=== PATIENT | female | born 1995 | race Caucasian/White ===

== ENCOUNTER 2017-11-15 00:15 | Emergency (ER) | payer OTHER ==
[2017-11-15] MEDS ORDERED: ONDANSETRON 4 MG/2 ML VIAL IVP ONE ×2 (00:21→02:54)
[2017-11-15] MEDS ORDERED: NS 1,000 ML IV ONE (00:21)
--- NOTE | 2017-11-15 00:33 | EDPHY ---
H & P Source: Patient, EMS Exam Limitations: Intoxication Time Seen by Provider: 11/15/17 00:21 HPI/ROS: HPI: This is a 22-year-old female who presents with Chief Complaint: Intoxication Location:body Quality: Intoxication Duration: Today Signs and Symptoms: No suicidal ideation, no homicidal ideation, no paranoia, no chest pain, no shortness of breath, no abdominal pain Timing: Acute Severity: Severe Context: Patient was brought in by EMS after a bystander called them as patient was vomiting in the bathroom on [address]. Patient is clearly intoxicated , mumbles, no bystanders at bedside. + nausea. Patient unable to tell me what she has drank or ingested this evening. She is unsure of where she is. Modifying Factors: None Comment: ROS: Limited due to intoxication MEDICAL/SURGICAL/SOCIAL HISTORY: Medical history: Unknown Surgical history: None to Social history: Unknown CONSTITUTIONAL: intoxicated, somnolent, wakes to verbal stimuli, no obvious distress HEENT: Atraumatic and normocephalic, PERRL, EOMI. Tympanic membranes clear. Oropharynx clear, no exudate and moist pink mucosa. Airway patent. No lymphadenopathy. No meningismus. Cardiovascular: Normal S1/S2, regular rate, regular rhythm, without murmur rub or gallop. PULMONARY/CHEST: Symmetrical and nontender. Clear to auscultation bilaterally. Good air movement. No accessory muscle usage. ABDOMEN: Soft, nondistended, nontender, no rebound, no guarding, no peritoneal signs, no masses or organomegaly. No CVAT. EXTREMITIES: 2/2 pulses, strength 5/5, no deformities, no clubbing, no cyanosis or edema. NEUROLOGICAL: no focal neuro deficits. Somnolent. Will not follows 1 step commands. SKIN: Warm and dry, no erythema. no rash. Good capillary refill. (Johnna,Terra) Constitutional: Initial Vital Signs Temperature (C) 36.8 C 11/15/17 00:26 Heart Rate 94 11/15/17 00:26 Respiratory Rate 16 11/15/17 00:26 Blood Pressure 127/96 H 11/15/17 00:26 O2 Sat (%) 92 11/15/17 00:26 O2 Delivery Mode Room Air Allergies/Adverse Reactions: Unable to Assess Allergy (Unverified 08/13/15 00:24) Home Medications: Medication Instructions Recorded Unobtainable 08/13/15 Medical Decision Making ED Course/Re-evaluation: Patient placed on detainer upon arrival. Labs, UDS, IV fluids, IV medications ordered. Placed on monitor. 0038: Reassessed patient; sleeping soundly in hallway bed. 0124: VENICE 406 0200: End of Shift. Signed over to Dr. Metzger pending re-evaluation once more sober. This patient was seen under the supervision of my secondary supervising physician. I evaluated care for this patient independently. Discussed this patient with Dr. Metzger who did not see the patient. Patient's presentation, labs /imaging, treatment and plan of care were discussed with secondary supervising physician. (Olga Oropeza) Differential Diagnosis: Altered mental status including but not limited to hypoglycemia, infectious process, electrolyte abnormality, head injury and intoxicants. (Olga Oropeza) Other Provider: 0200 care assumed by me from ISACC Oropeza pending sobriety and ability to ambulate. 0630 Patient is now awake and appropriate. Ambulating unassisted to the bathroom. No current complaints. Medically cleared for discharge. She has sober friends here. (Mario Metzger) - Data Points Laboratory Results: Laboratory Results 11/15/17 00:21 11/15/17 00:30 11/15/17 11/15/17 11/15/17 00:30 00:30 00:21 WBC 9.34 10^3/uL 10^3/uL (3.80-9.50) RBC 4.71 10^6/uL 10^6/uL (4.18-5.33) Hgb 12.5 g/dL L g/dL (12.6-16.3) Hct 38.1 % % (38.0-47.0) MCV 80.9 fL L fL (81.5-99.8) MCH 26.5 pg L pg (27.9-34.1) MCHC 32.8 g/dL g/dL (32.4-36.7) RDW 17.6 % H % (11.5-15.2) Plt Count 244 10^3/uL 10^3/uL (150-400) MPV 9.6 fL fL (8.7-11.7) Neut % (Auto) 79.1 % H % (39.3-74.2) Lymph % (Auto) 16.2 % % (15.0-45.0) [place] % (Auto) 4.0 % L % (4.5-13.0) Eos % (Auto) 0.0 % L % (0.6-7.6) Baso % (Auto) 0.6 % % (0.3-1.7) Nucleat RBC Rel Count 0.0 % % (0.0-0.2) Absolute Neuts (auto) 7.39 10^3/uL H 10^3/uL (1.70-6.50) Absolute Lymphs (auto) 1.51 10^3/uL 10^3/uL (1.00-3.00) Absolute Monos (auto) 0.37 10^3/uL 10^3/uL (0.30-0.80) Absolute Eos (auto) 0.00 10^3/uL L 10^3/uL (0.03-0.40) Absolute Basos (auto) 0.06 10^3/uL 10^3/uL (0.02-0.10) Absolute Nucleated RBC 0.00 10^3/uL 10^3/uL (0-0.01) Immature Gran % 0.1 % % (0.0-1.1) Immature Gran # 0.01 10^3/uL 10^3/uL (0.00-0.10) Sodium 150 mEq/L H mEq/L (135-145) Potassium 4.0 mEq/L mEq/L (3.5-5.2) Chloride 109 mEq/L mEq/L (97-110) Carbon Dioxide 20 mEq/l L mEq/l (22-31) Anion Gap 21 mEq/L H mEq/L (8-16) BUN 7 mg/dL mg/dL (7-23) Creatinine 0.7 mg/dL mg/dL (0.6-1.0) Estimated GFR > 60 Glucose 104 mg/dL H mg/dL (70-100) Calcium 10.3 mg/dL mg/dL (8.5-10.4) Beta HCG, Qual NEGATIVE Ethyl Alcohol 406 mg/dL H* mg/dL (0-10) Medications Given: Discontinued Medications Sodium Chloride (Ns) 1,000 mls @ 0 mls/hr IV EDNOW ONE; Wide Open PRN Reason: Protocol Stop: 11/15/17 00:22 Last Admin: 11/15/17 00:40 Dose: 1,000 mls Ondansetron HCl (Zofran) 4 mg IVP EDNOW ONE Stop: 11/15/17 00:22 Last Admin: 11/15/17 00:40 Dose: 4 mg Ondansetron HCl (Zofran) 4 mg IVP EDNOW ONE Stop: 11/15/17 02:55 Last Admin: 11/15/17 02:57 Dose: 4 mg Departure - Departure Disposition: Home, Routine, Self-Care Clinical Impression: Alcohol intoxication Qualifiers: Complication of substance-induced condition: uncomplicated Qualified Code(s): F10.920 - Alcohol use, unspecified with intoxication, uncomplicated Instructions: Alcohol Intoxication (ED) Referrals: Patient,NotPresent [Primary Care Provider] - As per Instructions
[2017-11-15 00:41] VITALS: RESP 16
[2017-11-15 01:18] LABS: PLATELET COUNT 244 10^3/uL (150-400)
[2017-11-15] MEDS ORDERED: ONDANSETRON 4 MG/2 ML VIAL ONE (02:44)
[2017-11-15 06:54] VITALS: BP 119/67; PULSE 78; TEMP 98.2; O2SAT 95
== END 2017-11-15 06:58 | disposition home or self-care (01) ==
LOC: EDUNIT#
DX: F10.920 Alcohol use, unspecified with intoxication, uncomplicated (principal); E86.9 Volume depletion, unspecified
CPT/HCPCS: 96374; G0480; J2405

== ENCOUNTER 2018-04-30 20:57 | Emergency (ER) | payer OTHER ==
--- NOTE | 2018-04-30 21:09 | EDPHY ---
General Time Seen by Provider: 04/30/18 21:06 Narrative: CHIEF COMPLAINT: fell, "fucked up my back" HISTORY OF PRESENT ILLNESS: Patient presents with complaints of "I fell and fucked up my back." She states that she was hiking when she slipped and fell, landing on a rock on her left lower back. She denies head strike or loss of consciousness. Her only complaint is a laceration to the left lower back and muscular pain there. She has no midline back tenderness. She has no numbness, tingling or weakness. No incontinence of bowel or bladder. No difficulty ambulating. It is moderately painful when you touch the area. Pain improved at rest. No radiating pain. No other associated complaints or modifying factors. No history of bleeding disorders. 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 Nonsmoker. [employer] student. REVIEW OF SYSTEMS: Ten systems reviewed and are negative unless otherwise noted in the HPI EXAMINATION General Appearance: Alert, no distress. Well-developed well-nourished. Head: normocephalic, atraumatic. No Fernandez sign. No raccoon eyes. No outward signs of trauma. Neck: Supple nontender. No crepitus, step-off or deformity. Painless range of motion all planes. Cardiovascular: Symmetric DP and PT pulses 2+. Neurological: GCS 15. 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 Left lower back lacerations. The superior laceration is 3.5 cm, complex with involvement of the fascial layer of the quadratus lumborum but no muscular laceration. No foreign body. The inferior laceration is very superficial without foreign body or bleeding. Extremities: Nontender, no pedal edema. Symmetric range of motion MDM: 9:10 p.m. Mechanical fall with 2 left lower back lacerations that will require irrigation further examination as there is dried blood around it. Patient is currently change into a gown no head strike or loss of conscious. She is fully ambulatory with no acute distress. 9:20 p.m. Patient has change into a gown and I have been able to examine her. She has 2 areas of laceration to left lower back that will require suture repair. He was superficial and do not compromise the fascial or muscular planes. There is no foreign body or pulsatile bleeding. She is neuro intact distally. Tetanus is up-to-date this year. 10:05 p.m. After irrigation of the wound, the superior laceration is much deeper than initially appreciated. This does go down to the fascial layer of the quadratus lumborum but does not penetrate any of the muscular layers. This required a 3 layer closure which was done with excellent approximation. We discussed wound care. We discussed Keflex prophylaxis and muscle relaxation if needed. We discuss ibuprofen 600 mg [id number] every 6-8 hours. We discussed wound re-evaluation in 48-72 hours here or the primary care physician. We discussed suture removal in 7-10 days. She is comfortable this plan and discharged home stable condition. PROCEDURE: Laceration repair, 1. Consent: Verbal Location: Left lower back, superior Length of repair: 3.5 cm, oval Complexity: Complex Layer involvement: 3 layer Anesthesia: Local per 1% lidocaine with epinephrine. 6 mL Irrigation: Extensive Debridement: None Procedure description: Following good anesthesia, the wound was copiously irrigated. Wound bed was explored with a sterile glove, and there is no foreign body noted. There is compromise of the fascial layer but no muscular injury. Wound borders were approximated well with good hemostasis. Tolerated well without complication. Suture/Staple material: Fascial layer: 4-0 Vicryl, 5 [id number] simple sutures. Subcutaneous layer 4-0 Vicryl, 8 running sutures. cutaneous layer: 4-0 Prolene, 9 simple interrupted sutures Wound care: Routine as discussed Suture/Staple removal: 7-10 Days PROCEDURE: Laceration repair, 2. Consent: Verbal Location: Left lower back, inferior Length of repair: 2.5 cm oval Complexity: Complex Layer involvement: Single Anesthesia: Local. 1% lidocaine with epinephrine. 4 mL Irrigation: Extensive Debridement: None Procedure description: Following good anesthesia, the wound was copiously irrigated. Wound bed was explored with a sterile glove, and there is no foreign body noted. No injury to the fascia or muscular layers of the low back. Wound borders were approximated well with good hemostasis. Tolerated well without complication. Suture/Staple material: 4-0 Prolene, 5 simple interrupted Wound care: Routine as discussed Suture/Staple removal: 7-10 Days SUPERVISION: This patient was independently evaluated without direct involvement of or examination by the attending physician. ED Precautions: Worsening pain. Erythema, edema, cyanosis, pallor, paresthesia or anesthesia. - History Smoking Status: Never smoked - Objective Vital Signs: Initial Vital Signs Temperature (C) 98.1 F 04/30/18 20:58 Heart Rate 99 04/30/18 20:58 Respiratory Rate 16 04/30/18 20:58 Blood Pressure 129/87 H 04/30/18 20:58 O2 Sat (%) 96 04/30/18 20:58 O2 Delivery Mode Room Air Allergies/Adverse Reactions: amoxicillin Allergy (Verified 04/30/18 21:04) Home Medications: Medication Instructions Recorded Cephalexin [Keflex (*)] 500 mg PO QID #24 cap 04/30/18 Cyclobenzaprine [Cyclobenzaprine 5 mg PO TID PRN #9 tab 04/30/18 HCl] Departure - Departure Disposition: Home, Routine, Self-Care Clinical Impression: Laceration of left side of back Qualifiers: Encounter type: initial encounter Qualified Code(s): S21.212A - Laceration without foreign body of left back wall of thorax without penetration into thoracic cavity, initial encounter Laceration of trunk, complicated Qualifiers: Encounter type: initial encounter Qualified Code(s): S21.91XA - Laceration without foreign body of unspecified part of thorax, initial encounter Condition: Good Instructions: Cephalexin (By mouth), Cyclobenzaprine (By mouth), Care For Your Stitches (ED), Laceration (ED) Additional Instructions: 1. Thin layer of bacitracin once daily for the next 2 days 2. Keep the wound covered while showering for the next 3 days 3. Daily wound care as discussed 4. Return here for suture removal in 7 days 5. Return here for signs of infection as discussed including warmth, redness, fever, drainage from the site 6. return here for increasing pain surrounding the laceration 7. Do not submerge the wound in any water, hot tub, swimming pool until sutures removed Referrals: Rory Moore MD [Medical Doctor] - As per Instructions Physician,Emergency DeptMD [Medical Doctor] - As per Instructions (7-10 days for suture removal) Prescriptions: Cephalexin [Keflex (*)] 500 mg PO QID #24 cap Cyclobenzaprine [Cyclobenzaprine HCl] 5 mg PO TID PRN #9 tab PRN Reason: Spasms
[2018-04-30] MEDS ORDERED: CEPHALEXIN 500MG PREPACK#4 BTL TAKEHOME ONE (22:06)
[2018-04-30] MEDS ORDERED: CYCLOBENZAPRINE 10MG PREPACK#3 BTL TAKEHOME ONE (22:06)
[2018-04-30 22:08] VITALS: BP 125/75
== END 2018-04-30 22:23 | disposition home or self-care (01) ==
DX: S21.212A Laceration without foreign body of left back wall of thorax without penetration into thoracic cavity, initial encounter (principal); S21.91XA Laceration without foreign body of unspecified part of thorax, initial encounter; W01.0XXA Fall on same level from slipping, tripping and stumbling without subsequent striking against object, initial encounter; Y99.8 Other external cause status; Y93.01 Activity, walking, marching and hiking

== ENCOUNTER 2018-06-27 16:36 | Emergency (ER) | payer OTHER ==
[2018-06-27] MEDS ORDERED: ONDANSETRON 4 MG/2 ML VIAL IVP ONE (16:55)
[2018-06-27] MEDS ORDERED: NS 1,000 ML IV ONE (16:55)
[2018-06-27] MEDS ORDERED: KETOROLAC 30 MG/1 ML SDV IVP ONE (16:55)
--- NOTE | 2018-06-27 17:01 | EDPHY ---
H & P Stated Complaint: ABD CRAMPING DX HERPES/RX ACYCLOVIR Time Seen by Provider: 06/27/18 16:51 HPI/ROS: CHIEF COMPLAINT: Lower abdominal pain HISTORY OF PRESENT ILLNESS: The patient is a 23-year-old female who comes to the emergency department complaining of 4 days lower abdominal pain and cramping. No bleeding. She took a test that is negative. No discharge. No urinary symptoms. No diarrhea. She was told about 2 weeks ago that her partner has genital herpes and started on acyclovir about that time. She did have a very faint rash initially but has since resolved. It was on her labia not on her abdomen. No trauma. No fever. She has had mild nausea but no vomiting. Severity: Moderate Modifying factors: None REVIEW OF SYSTEMS: Constitutional: denies: chills, fever, recent illness, recent injury EENTM: denies: blurred vision, double vision, nose congestion Respiratory: denies: cough, shortness of breath Cardiac: denies: chest pain, irregular heart rate, lightheadedness, palpitations Gastrointestinal/Abdominal: See HPI denies: diarrhea, vomiting, blood streaked stools Genitourinary: denies: dysuria, frequency, hematuria, pain Musculoskeletal: denies: joint pain, muscle pain Skin: denies: lesions, rash, jaundice, bruising Neurological: denies: headache, numbness, paresthesia, tingling, dizziness, weakness Hematologic/Lymphatic: denies: blood clots, easy bleeding, easy bruising Immunologic/allergic: denies: HIV/AIDS, transplant 10 systems reviewed and negative except as noted EXAM: GENERAL: Well-appearing, well-nourished and in no acute distress. HEAD: Atraumatic, normocephalic. EYES: Pupils equal round and reactive to light, extraocular movements intact, sclera anicteric, conjunctiva are normal. ENT: TMs normal, nares patent, oropharynx clear without exudates. Moist mucous membranes. NECK: Normal range of motion, supple without lymphadenopathy or JVD. LUNGS: Breath sounds clear to auscultation bilaterally and equal. No wheezes rales or rhonchi. HEART: Regular rate and rhythm without murmurs, rubs or gallops. ABDOMEN: Suprapubic and bilateral lower quadrant pain, Soft, nontender, normoactive bowel sounds. No guarding, no rebound. No masses appreciated. : The patient does have yellowish/white discharge from the cervix. Is no cervical motion tenderness mild tenderness to left adnexa no masses BACK: No CVA tenderness, no spinal tenderness, step-offs or deformities EXTREMITIES: Normal range of motion, no pitting or edema. No clubbing or cyanosis. NEUROLOGICAL: Cranial nerves II through XII grossly intact. Normal speech, normal gait. 5/5 strength, normal movement in all extremities, normal sensation , normal reflexes PSYCH: Normal mood, normal affect. SKIN: Warm, dry, normal turgor, no visible rashes or lesions. Source: Patient Exam Limitations: No limitations - Personal History LMP (Females 10-55): 1-7 Days Ago Current Tetanus Diphtheria and Acellular Pertussis (TDAP): Yes - Medical/Surgical History Hx Asthma: No Hx Chronic Respiratory Disease: No Hx Diabetes: No Hx Cardiac Disease: No Hx Renal Disease: No Hx Cirrhosis: No Hx Alcoholism: No Hx HIV/AIDS: No Hx Splenectomy or Spleen Trauma: No Other PMH: clubbed feet surgery - Family History Significant Family History: No pertinent family hx - Social History Smoking Status: Never smoked Alcohol Use: None Drug Use: None Constitutional: Initial Vital Signs Temperature (C) 36.8 C 06/27/18 16:41 Heart Rate 79 06/27/18 16:41 Respiratory Rate 18 06/27/18 16:41 Blood Pressure 102/77 06/27/18 16:41 O2 Sat (%) 96 06/27/18 16:41 O2 Delivery Mode Room Air Allergies/Adverse Reactions: amoxicillin Allergy (Verified 06/27/18 16:40) Home Medications: Medication Instructions Recorded Acyclovir 06/27/18 Doxycycline Hyclate [Vibramycin] 100 mg PO BID #30 cap 06/27/18 Medical Decision Making - Diagnostics Imaging Results: Imaging Impressions Abdomen Ultrasound 06/27/18 16:56 Impression: Indeterminate study for appendicitis, as a normal nor an abnormal appendix is visualized. Mildly prominent mesenteric lymph nodes which could be seen with mesenteric adenitis. Results called and discussed with Armando Pak MD on June 27, 2018 at 1801 hours. Pelvic/Renal Ultrasound 06/27/18 16:56 Impression: Normal ultrasound pelvis. Results called and discussed with Dr. Armando Pak at 06/27/2018 18:00. Abdomen CT 06/27/18 18:08 Impression: No CT findings for appendicitis. Moderate constipation. Results called and discussed with Armando Pak MD on June 27, 2018 at 1845 hours. Imaging: Discussed imaging studies w/ call specialist Radiologist ED Course/Re-evaluation: The patient has a elevated white count. She has a few white cells in her urine but no urinary complaints. The lab seem discoordinated. We cannot visualize her appendix on the ultrasound. It is reassuring that she states primary source of pain is on the left lower quadrant. We had discussion about the risks and benefits of CT scan verses treating for UTI and agree to proceed with CT scan. 7:[address] the patient's CT scan is reassuring. This appears to be either minimally symptomatic UTI or pelvic inflammatory disease. I will treat the patient with Rocephin and doxycycline and sent her urine for cultures. Differential Diagnosis: Partial list of the Differential diagnosis considered include but were not limited to; urinary tract infection, kidney stone, appendicitis, ovarian cyst, ovarian torsion, , PID and although unlikely based on the history and physical exam, I also considered obstruction, ischemia. I discussed these differential diagnoses and the plan with the patient as well as the usual and expected course. The patient understands that the diagnosis is provisional and that in medicine we are not always correct and that further workup is often warranted. Usual and customary warnings were given. All of the patient's questions were answered. The patient was instructed to return to the emergency department should the symptoms at all worsen or return, otherwise to followup with the physician as we discussed. - Data Points Laboratory Results: Laboratory Results 06/27/18 17:00 06/27/18 17:00 06/27/18 06/27/18 06/27/18 19:00 19:00 17:05 WBC RBC Hgb Hct MCV MCH MCHC RDW Plt Count MPV Neut % (Auto) Lymph % (Auto) [place] % (Auto) Eos % (Auto) Baso % (Auto) Nucleat RBC Rel Count Absolute Neuts (auto) Absolute Lymphs (auto) Absolute Monos (auto) Absolute Eos (auto) Absolute Basos (auto) Absolute Nucleated RBC Immature Gran % Immature Gran # Sodium Potassium Chloride Carbon Dioxide Anion Gap BUN Creatinine Estimated GFR Glucose Calcium Total Bilirubin Conjugated Bilirubin Unconjugated Bilirubin AST ALT Alkaline Phosphatase Total Protein Albumin Lipase Beta HCG, Qual Urine Color YELLOW Urine Appearance CLEAR Urine pH 5.0 (5.0-7.5) Ur Specific [place] 1.020 (1.002-1.030) Urine Protein NEGATIVE (NEGATIVE) Urine Ketones 1+ H (NEGATIVE) Urine Blood NEGATIVE (NEGATIVE) Urine Nitrate NEGATIVE (NEGATIVE) Urine Bilirubin NEGATIVE (NEGATIVE) Urine Urobilinogen NEGATIVE EU EU (0.2-1.0) Ur Leukocyte Esterase 1+ H (NEGATIVE) Urine RBC 1-3 /hpf /hpf (0-3) Urine WBC 5-10 /hpf H /hpf (0-3) Ur Epithelial Cells TRACE /lpf /lpf (NONE-1+) Urine Mucus TRACE /lpf /lpf (NONE-1+) Urine Glucose NEGATIVE (NEGATIVE) Purnima species DNA NEGATIVE (NEGATIVE) C.trachomatis RNA (TMA) Pending Gardnerella DNA Probe NEGATIVE (NEGATIVE) N.gonorrhoeae RNA (TMA) Pending Trichomonas DNA Probe NEGATIVE (NEGATIVE) 06/27/18 06/27/18 06/27/18 17:00 17:00 17:00 WBC 14.24 10^3/uL H 10^3/uL (3.80-9.50) RBC 4.58 10^6/uL 10^6/uL (4.18-5.33) Hgb 12.2 g/dL L g/dL (12.6-16.3) Hct 37.1 % L % (38.0-47.0) MCV 81.0 fL L fL (81.5-99.8) MCH 26.6 pg L pg (27.9-34.1) MCHC 32.9 g/dL g/dL (32.4-36.7) RDW 17.8 % H % (11.5-15.2) Plt Count 204 10^3/uL 10^3/uL (150-400) MPV 9.6 fL fL (8.7-11.7) Neut % (Auto) 75.4 % H % (39.3-74.2) Lymph % (Auto) 20.7 % % (15.0-45.0) [place] % (Auto) 2.9 % L % (4.5-13.0) Eos % (Auto) 0.1 % L % (0.6-7.6) Baso % (Auto) 0.3 % % (0.3-1.7) Nucleat RBC Rel Count 0.0 % % (0.0-0.2) Absolute Neuts (auto) 10.74 10^3/uL H 10^3/uL (1.70-6.50) Absolute Lymphs (auto) 2.95 10^3/uL 10^3/uL (1.00-3.00) Absolute Monos (auto) 0.42 10^3/uL 10^3/uL (0.30-0.80) Absolute Eos (auto) 0.01 10^3/uL L 10^3/uL (0.03-0.40) Absolute Basos (auto) 0.04 10^3/uL 10^3/uL (0.02-0.10) Absolute Nucleated RBC 0.00 10^3/uL 10^3/uL (0-0.01) Immature Gran % 0.6 % % (0.0-1.1) Immature Gran # 0.08 10^3/uL 10^3/uL (0.00-0.10) Sodium 141 mEq/L mEq/L (135-145) Potassium 3.6 mEq/L mEq/L (3.3-5.0) Chloride 107 mEq/L mEq/L (97-110) Carbon Dioxide 24 mEq/l mEq/l (22-31) Anion Gap 10 mEq/L mEq/L (8-16) BUN 11 mg/dL mg/dL (7-23) Creatinine 0.7 mg/dL mg/dL (0.6-1.0) Estimated GFR > 60 Glucose 87 mg/dL mg/dL (70-100) Calcium 9.3 mg/dL mg/dL (8.5-10.4) Total Bilirubin 0.7 mg/dL mg/dL (0.1-1.4) Conjugated Bilirubin 0.2 mg/dL mg/dL (0.0-0.5) Unconjugated Bilirubin 0.5 mg/dL mg/dL (0.0-1.1) AST 30 IU/L IU/L (14-46) ALT 32 IU/L IU/L (9-52) Alkaline Phosphatase 89 IU/L IU/L (38-126) Total Protein 6.8 g/dL g/dL (6.3-8.2) Albumin 3.8 g/dL g/dL (3.5-5.0) Lipase 89 IU/L IU/L (23-300) Beta HCG, Qual NEGATIVE Urine Color Urine Appearance Urine pH Ur Specific [place] Urine Protein Urine Ketones Urine Blood Urine Nitrate Urine Bilirubin Urine Urobilinogen Ur Leukocyte Esterase Urine RBC Urine WBC Ur Epithelial Cells Urine Mucus Urine Glucose Purnima species DNA C.trachomatis RNA (TMA) Gardnerella DNA Probe N.gonorrhoeae RNA (TMA) Trichomonas DNA Probe Medications Given: Discontinued Medications Doxycycline Hyclate (Doxycycline Hyclate) 100 mg PO EDNOW ONE PRN Reason: Protocol Stop: 06/27/18 19:07 Last Admin: 06/27/18 19:15 Dose: 100 mg Sodium Chloride (Ns) 1,000 mls @ 0 mls/hr IV EDNOW ONE; Wide Open PRN Reason: Protocol Stop: 06/27/18 16:56 Last Admin: 06/27/18 17:08 Dose: 1,000 mls Ceftriaxone Sodium/Dextrose (Rocephin 1 Gm (Premix)) 50 mls @ 100 mls/hr IV EDNOW ONE PRN Reason: Protocol Stop: 06/27/18 19:35 Last Admin: 06/27/18 19:15 Dose: 50 mls Ketorolac Tromethamine (Toradol) 15 mg IVP EDNOW ONE Stop: 06/27/18 16:56 Last Admin: 06/27/18 17:09 Dose: 15 mg Ondansetron HCl (Zofran) 4 mg IVP EDNOW ONE Stop: 06/27/18 16:56 Last Admin: 06/27/18 17:09 Dose: 4 mg Departure - Departure Disposition: Home, Routine, Self-Care Clinical Impression: Lower abdominal pain Condition: Fair Instructions: Acute Abdominal Pain (ED) Referrals: NONE *PRIMARY CARE P,. [Primary Care Provider] - As per Instructions Uziel Thornton DO [Medical Doctor] - As per Instructions Prescriptions: Doxycycline Hyclate [Vibramycin] 100 mg PO BID #30 cap
[2018-06-27 17:13] LABS: PLATELET COUNT 204 10^3/uL (150-400)
[2018-06-27] MEDS ORDERED: IOPAMIDOL (ISOVUE-300) 100 ML BTL ONE (18:17)
[2018-06-27] MEDS ORDERED: DOXYCYCLINE HYCLATE 100 MG CAP/TAB PO ONE (19:06)
[2018-06-27 19:45] VITALS: BP 118/79
[2018-06-30 13:11] LABS: GC AMPLIFICATION GENPROBE NEGATIVE (NEGATIVE)
== END 2018-06-27 19:45 | disposition home or self-care (01) ==
DX: R10.30 Lower abdominal pain, unspecified (principal)
CPT/HCPCS: 96365; J0696; J1885; J2405; Q9967

== ENCOUNTER 2018-09-13 20:14 | Emergency (ER) | payer OTHER ==
[2018-09-13] MEDS ORDERED: HYDROCODONE/APAP 5/325 TAB PO ONE (22:07)
[2018-09-13] MEDS ORDERED: IBUPROFEN 200 MG TAB PO ONE (22:07)
[2018-09-13] MEDS ORDERED: ALPRAZolam 0.25 MG TAB PO ONE (22:11)
[2018-09-13] MEDS ORDERED: HYDROCOD/APAP 5/325 PREPACK#6 BTL TAKEHOME ONE (22:54)
--- NOTE | 2018-09-13 22:54 | EDPHY ---
H & P Stated Complaint: R wrist injury fooshed snowboarding today Time Seen by Provider: 09/13/18 20:35 HPI/ROS: Chief complaint: Right wrist injury History of present illness: This is a 23-year-old female who presents to the emergency department for right wrist injury. Patient was snowboarding earlier today when she fell onto an outstretched hand. Since then she has had pain and swelling. She has noted a deformity. It is difficult to move the wrist. She denies open wounds. She denies abnormal coolness or paresthesias in the hand. She can still move the digits. No report of trauma to other parts of the body. - Personal History LMP (Females 10-55): 15-21 Days Ago - Medical/Surgical History Hx Asthma: No Hx Chronic Respiratory Disease: No Hx Diabetes: No Hx Cardiac Disease: No Hx Renal Disease: No Hx Cirrhosis: No Hx Alcoholism: No Hx HIV/AIDS: No Hx Splenectomy or Spleen Trauma: No Other PMH: denies - Social History Smoking Status: Never smoked - Physical Exam Exam: General: Alert, nontoxic. Skin: No open wounds to the right upper extremity. Musculoskeletal: Tenderness to the right wrist with slight dorsal deformity. She cannot move it secondary to pain. She is able to move the digits in the right hand. The rest of the right upper extremities unremarkable. Vascular: Radial pulse 2 +. Capillary refill brisk in the right hand. Neurologic: Sensation intact in the right hand. Constitutional: Initial Vital Signs Temperature (C) 36.7 C 09/13/18 20:17 Heart Rate 75 09/13/18 20:17 Respiratory Rate 16 09/13/18 20:17 Blood Pressure 118/78 09/13/18 20:17 O2 Sat (%) 97 09/13/18 20:17 O2 Delivery Mode Room Air Allergies/Adverse Reactions: amoxicillin Allergy (Verified 06/27/18 16:40) Home Medications: Medication Instructions Recorded Hydrocodone/APAP 5/325 [[place] 1 tab PO Q6H #6 tab 09/13/18 5/325 (*)] Medical Decision Making - Diagnostics Imaging Results: Imaging Impressions Wrist X-Ray 09/13/18 20:20 Impression: Radial and ulnar fractures as detailed above. Imaging: I viewed and interpreted images myself ED Course/Re-evaluation: Patient seen under the supervision of my secondary supervising physician Dr. Uziel Kim. Patient presents for a right wrist injury. X-ray confirms a fracture. She is neurovascularly intact. Orthopedics, Dr. Guillen was consulted. He came to the emergency department, saw the patient, reduced and splinted the fracture. Patient will be discharged home to follow up in his clinic. Home care is discussed. Return precautions are given. Differential Diagnosis: Included but not limited to contusion, sprain or strain, bony fracture, joint dislocation - Data Points Medications Given: Discontinued Medications Hydrocodone Bitart/Acetaminophen ([place] 5/325mg Prepack#6) 1 btl TAKEHOME EDNOW ONE Stop: 09/13/18 22:55 Last Admin: 09/13/18 23:02 Dose: 1 btl Alprazolam (Xanax) 0.5 mg PO EDNOW ONE Stop: 09/13/18 22:12 Last Admin: 09/13/18 22:14 Dose: 0.5 mg Departure - Departure Disposition: Home, Routine, Self-Care Clinical Impression: Wrist fracture, right Qualifiers: Encounter type: initial encounter Fracture type: closed Qualified Code(s): S62.101A - Fracture of unspecified carpal bone, right wrist, initial encounter for closed fracture Condition: Good Instructions: Hydrocodone/Acetaminophen (By mouth), Wrist Fracture in Adults ( ED) Additional Instructions: Follow-up with Orthopedics on Friday for recheck as discussed In regards to pain control see the following: Use ibuprofen [600] mg [3] times a day for the next 2-3 days for pain In addition You have been prescribed [[place]] for pain. [[place]] contains Tylenol, do not take extra Tylenol/acetaminophen/Apap with it. It is sedating. If symptoms worsen or new symptoms develop return to the emergency room for recheck Referrals: NONE *PRIMARY CARE P,. [Primary Care Provider] - As per Instructions Hank Guillen MD [Medical Doctor] - As per Instructions Prescriptions: Hydrocodone/APAP 5/325 [[place] 5/325 (*)] 1 tab PO Q6H #6 tab
[2018-09-13 23:10] VITALS: BP 118/60
--- NOTE | 2018-09-14 00:35 | GCON ---
I was asked to see Rowena by the emergency room. HISTORY OF PRESENT ILLNESS: The patient was snowboarding earlier today when she fell onto an outstre tched right wrist, resulting in immediate pain and deformity. On physical examination, she does have a dorsal dorsally displaced deformity. Skin is clean, dry, intact. She has no gross sensory, motor , or vascular deficits. Images reviewed include x-rays of the wrist which demonstrate an apex volar distal radius fracture. IMPRESSION: Closed right distal radius fracture. The patient was injected with 10 cc of 2% lidocaine and tolerated this well. She had no sensory defi cits following the injection. Using longitudinal traction and volar translation, the wrist was reduc ed. A sugar-tong splint was then placed. ASSESSMENT/PLAN: I will see the patient back on Friday. I had a discussion about precautions wit h her, and on Friday, we will change her up for a cast. All questions were answered at this time. /[id number]/MODL
== END 2018-09-13 23:11 | disposition home or self-care (01) ==
PROC: 2W3EX1Z Immobilization of Right Hand using Splint (ICD-10-PCS; principal; 2018-09-13)
DX: S62.101A Fracture of unspecified carpal bone, right wrist, initial encounter for closed fracture (principal); V00.311A Fall from snowboard, initial encounter; Y93.23 Activity, snow (alpine) (downhill) skiing, snowboarding, sledding, tobogganing and snow tubing; Y92.89 Other specified places as the place of occurrence of the external cause
CPT/HCPCS: L3980